=== PATIENT | female | born 1970 | race Caucasian/White ===

== ENCOUNTER 2019-05-27 15:38 | Emergency (ER) | payer BC ==
--- OUTSIDE RECORDS SUMMARY | 2019-05-27 16:10 | XMS REPORT | Continuity of Care Document ---
:1970 External Reference #:[id number] Author Name Khalida Wallace, FRANCOIS, RN, PIPELINE SUPERINTENDENT-BC (transmitted by agent of provider Chely Ramesh) Address [address] [facility], [address] [place] [address] Care Team Providers Name Role Phone Claudia Amezcua, DO - Family Care Team Information Professor Of Counseling [phone] Medicine Problems Description No Information Available Social History Type Date Description Comments Sex Unknown Tobacco Use Start: Unknown Never Smoked Cigarettes Smoking Status Reviewed: 05/10/19 Never Smoked Cigarettes ETOH Use Denies alcohol use Tobacco Use Start: Unknown Patient has never smoked Recreational Drug Use Denies Drug Use Exercise Type/Frequency Does not exercise Allergies, Adverse Reactions, Alerts Active Allergies Reaction Severity Comments Date Succinylcholine 04/14/2019 Inactive Allergies NKDA 03/29/2016 Medications Active Medications SIG Qnty Indications Ordering Provider Date Maxalt as needed for Unknown 10mg Tablets migraines Sertraline HCL Take 1 And 1/2 Unknown 50mg Tablets By Mouth Tablets One Time Daily Montelukast Sodium Take 1 Tablet By Unknown 10mg Mouth Every Day Tablets Diclofenac Sodium Take 1 Tablet By Unknown 50mg Mouth as Needed For Tablets DR Headache, May Repeat In 4 Hours. No More Than 2 Days Per Week, No More Than 15 Days Per Month. Topiramate Take 1 Tablet By Unknown 50mg Tablets Mouth Two Times Daily Omeprazole Take 1 Capsule By Unknown 20mg Mouth Every Day Capsules DR Migraine Pamela prn Unknown Migshield 1 qd Unknown CBD Oil cbd oil 1 or 2 Unknown drops topically daily for joint pain Immunizations Description No Information Available Vital Signs Date Vital Result Comment 05/10/2019 10:56am Height 67 inches 5'7" Weight 194.00 lb Heart Rate 76 /min BP Systolic 98 mmHg BP Diastolic 60 mmHg O2 % BldC Oximetry 98 % BMI (Body Mass Index) 30.4 kg/m2 04/14/2019 10:16am Height 67 inches 5'7" Weight 195.00 lb Heart Rate 72 /min BP Systolic Sitting 122 mmHg BP Diastolic Sitting 82 mmHg O2 % BldC Oximetry 96 % BMI (Body Mass Index) 30.5 kg/m2 Neck Circumference in inches 15.25 Results Description No Information Available Procedures Date Code Description Status 04/20/2019 50440 Sleep Study Unattended,HRT Rate,Oxygen Sat,Resp Completed Effort/Airflow Medical Devices Description No Information Available Encounters Type Date Location Provider Dx Diagnosis Office Visit 04/14/2019 [facility] Sleep Ana Rosa Vilchis MD R06.83 Snoring 10:30a [facility] R53.83 Other fatigue Office Visit 03/05/2019 10:00a [facility] Dermatology Kyle Conway L82.1 Other seborrheic MD keratosis D22.5 Melanocytic nevi of trunk Z80.8 Family history of malignant neoplasm of organs or systems Assessments Date Code Description Provider 05/10/2019 G47.33 Obstructive sleep apnea (adult) Khalida Wallace DNP, RN, PIPELINE SUPERINTENDENT-BC (pediatric) 05/10/2019 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 Khalida Wallace DNP, RN, PIPELINE SUPERINTENDENT- BC condition 05/10/2019 E66.9 Obesity, unspecified Khalida Wallace DNP, RN, PIPELINE SUPERINTENDENT-BC 05/10/2019 Z68.30 Body mass index (BMI) 30.0-30.9, Khalida Wallace DNP, RN , PIPELINE SUPERINTENDENT-BC adult 04/20/2019 G47.33 Obstructive sleep apnea (adult) Ana Rosa Vilchis MD (pediatric) 04/14/2019 R06.83 Snoring Ana Rosa Vilchis MD 04/14/2019 R53.83 Other fatigue Ana Rosa Vilchis MD 03/05/2019 L82.1 Other seborrheic keratosis Kyle Conway MD 03/05/2019 D22.5 Melanocytic nevi of trunk Kyle Conway MD 03/05/2019 Z80.8 Family history of malignant Kyle MD Man neoplasm of other organs or systems Plan of Treatment Future Appointment(s):07/02/2019 11:15 am - Khalida Wallace DNP, RN, PIPELINE SUPERINTENDENT-BC at [facility]05/10/2019 - Khalida Wallace DNP, RN, PIPELINE SUPERINTENDENT- BCG47.33 Obstructive sleep apnea (adult) (pediatric)Comments:Sleep Apnea - 04/20 HST AHI 6.2/hour, bret oxygen 74%, <89 3.8 minutes, wt 195# BMI 30.5Follow up:6 weeksRecommendations:Sleep apnea to start PAP at 5-12 cm Review of sleep study in detail. Review of risks of untreated sleep apnea including cardiovascular events: rhythm irregularities, heart attack, stroke; gastro esophageal reflux disease (GERD); diabetes; anxiety, depression; high blood pressure; accidents (machinery and automobile) Recommendation for PAP other treatment modalities NON-PAP including oral appliance/mandibular advancement device, positional strategies , and surgery discussed. Referral for PAP device to be sent to [facility] phone: [phone] Equipment appointment will take about 45 minutes, the DME provider will call you within 5 days to set you up for the device. If you do nothear from them call the Sleep Center. The mask will have a 30-day guarantee, if you have mask problems call the DME provider to have a fitting for a different mask. Need distilled water for humidifier CPAP mask and tubing Cleaning Wipe off mask daily (baby wipe-no scent, or warm water) Clean mask, tubing, filter, and water chamber weekly in mild no scent dish soap and water. Hang to dry. If you have problems with the air pressure call the sleep center and speak to a nurse. If you have any further questions, please call the [facility] Center at [phone]. If you have any sleepiness while driving you MUST avoid operating a vehicle or machinery.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 conditionRecommendations:Should improve with tgqnnbugzZ56.9 Obesity, unspecifiedReferral:Jo Ann Mcadams MD, Internal MedicineRecommendations: Due to problems losing weight despite healthy diet consult with [facility] formedically supervised weight lossZ68.30 Body mass index ( BMI) 30.0-30.9, adultRecommendations:see assessment #3 Functional Status Description No Information Available Mental Status Description No Information Available Referrals Refer to Reason for Referral Status Appt Date Jo Ann Mcadams MD Difficulty with weight loss despite healthy Sent eating Sleep apnea [address] [facility] [address] [place] [id number] [phone]
--- OUTSIDE RECORDS SUMMARY | 2019-05-27 16:10 | XMS REPORT | Continuity of Care Document ---
:1970 External Reference #:[id number] Author Name Ana Rosa Vilchis MD (transmitted by agent of provider Carlie Perez) Address [address], [address] [place] [address] Care Team Providers Name Role Phone Claudia Amezcua, DO - Family Care Team Information Property Manager [phone] Medicine Problems Description No Information Available Social History Type Date Description Comments Sex Unknown Tobacco Use Start: Unknown Never Smoked Cigarettes Smoking Status Reviewed: 04/14/19 Never Smoked Cigarettes ETOH Use Denies alcohol [...] Available Vital Signs Date Vital Result Comment 04/14/2019 10:16am Height 67 inches 5'7" Weight 195.00 lb Heart Rate 72 /min BP Systolic Sitting 122 mmHg BP Diastolic Sitting 82 mmHg O2 % BldC Oximetry 96 % BMI (Body Mass Index) 30.5 kg/m2 Neck Circumference in inches 15.25 03/31/2016 3:17pm Height 67 inches 5'7" Weight 192.00 lb Heart Rate 66 /min BP Systolic 110 mmHg BP Diastolic 78 mmHg Respiratory Rate 16 /min Body Temperature 97.3 F BMI (Body Mass Index) 30.1 kg/m2 Results Description No Information Available Procedures Description No Information Available Medical Devices Description No Information Available Encounters Type Date Location Provider Dx Diagnosis Office Visit 03/05/2019 [facility] Dermatology Kyle Conway MD L82.1 Other seborrheic 10:00a keratosis D22.5 Melanocytic nevi of trunk Z80.8 Family history of malignant neoplasm of organs or systems Assessments Date Code Description Provider 04/14/2019 R06.83 Snoring Ana oRsa Vilchis MD 04/14/2019 R53.83 Other fatigue Ana Rosa Vilchis MD 03/05/2019 L82.1 Other seborrheic keratosis Kyle Conway MD 03/05/2019 D22.5 Melanocytic nevi of trunk Kyle Conway MD 03/05/2019 Z80.8 Family history of malignant neoplasm of other Kyle Conway MD organs or systems Plan of Treatment 04/14/2019 - Ana Rosa Vilchis, MDR06.83 SnoringNew Orders:Home Sleep Testing, Ordered: 04/14/19Follow up:2 tzasqW92.83 Other fatigue Functional Status Description No Information Available Mental Status Description No Information Available Referrals Description No Information Available
--- OUTSIDE RECORDS SUMMARY | 2019-05-27 16:10 | XMS REPORT | Continuity of Care Document ---
:1970 External Reference #:[id number] Author Name Khalida Wallace, FRANCOIS, RN, CANDY SPREADER-BC (transmitted by agent of provider Chely Ramesh) Address [address] [facility], [address] [place] [address] Care Team Providers Name Role Phone Claudia Amezcua, DO - Family Care Team Information Terminal Gauger Supervisor Medicine Problems Description No Information Available Social [...] Available Procedures Date Code Description Status 04/20/2019 30330 Sleep Study Unattended,HRT Rate,Oxygen Sat,Resp Completed Effort/Airflow Medical Devices Description No Information Available Encounters Type Date Location Provider Dx Diagnosis Office Visit 04/14/2019 Pul[facility]ology And Sleep Ana Rosa Vilchis MD R06.83 Snoring 10:30a [facility] R53.83 Other fatigue Office Visit 03/05/2019 10:00a [facility] Dermatology Kyle Conway L82.1 Other seborrheic MD keratosis D22.5 Melanocytic nevi of trunk Z80.8 Family history of malignant neoplasm of organs or systems Assessments Date Code Description Provider 05/10/2019 G47.33 Obstructive sleep apnea (adult) Khalida Wallace DNP, RN, CANDY SPREADER-BC (pediatric) 05/10/2019 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 Khalida Wallace DNP, RN, CANDY SPREADER- BC condition 05/10/2019 E66.9 Obesity, unspecified Khalida Wallace DNP, RN, CANDY SPREADER-BC 05/10/2019 Z68.30 Body mass index (BMI) 30.0-30.9, Khalida Wallace DNP, RN , CANDY SPREADER-BC adult 04/20/2019 G47.33 Obstructive sleep apnea (adult) [...] 11:15 am - Khalida Wallace DNP, RN, CANDY SPREADER-BC at [facility]05/10/2019 - Khalida Wallace DNP, RN, CANDY SPREADER- BCG47.33 Obstructive sleep apnea (adult) (pediatric)Comments:Sleep Apnea [...] for PAP device to be sent to [email or web address] phone: [phone] Equipment appointment will take about 45 minutes, [...] please call the Sleep Disorder Center at [phone]. If you have any sleepiness while driving you MUST avoid operating a vehicle or machinery.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 conditionRecommendations:Should improve with haezbaaurH86.9 Obesity, unspecifiedReferral:Jo Ann Mcadams MD, Internal MedicineRecommendations: Due to problems losing weight despite healthy diet consult with [facility] formedically supervised weight lossZ68.30 Body mass index ( BMI) 30.0-30.9, adultRecommendations:see assessment #3 Functional Status Description No Information Available Mental Status Description No Information Available Referrals Refer to Reason for Referral Status Appt Date Jo Ann Mcadams MD Difficulty with weight loss despite healthy Created eating Sleep apnea [address] [facility] [address] [place] [id number] [phone]
[2019-05-27 16:36] VITALS: BP 148/87
--- NOTE | 2019-05-27 16:52 | UC ---
[facility] HPI - HPI Summary HPI Summary: 1 WEEK OF WORSENING LEFT UPPER DENTAL PAIN. FEELS IT IS SWOLLEN. NO DRAINAGE. NO FEVER. DOES HAVE A CAP ON THE TOOTH IN QUESTION. IS ALSO COMPLAINING OF A MILD COUGH FOR THE PAST FEW DAYS. STATES THE HUMIDIFIER ON HER CPAP MACHINE IS BROKEN AND WONDERS IF THE DRY AIR IS IRRITATING HER LUNGS. - History of Current Complaint Chief Complaint: UCGeneralIllness Stated Complaint: COUGH FEVER DENTAL PAIN Time Seen by Provider: 05/27/19 16:24 Hx Obtained From: Patient Hx Last Menstrual Period: last week Onset/Duration: Gradual Onset, Lasting Days, Still Present Severity: Moderate Pain Intensity: 5 Pain Scale Used: 0-10 Numeric Aggravating Factor(s): Heat, Cold, Chewing Alleviating Factor(s): Nothing Related History: Previous Dental Care on Same Tooth - Allergies/Home Medications Allergies/Adverse Reactions: Allergies Allergy/AdvReac Type Severity Reaction Status Date / Time succinylcholine Allergy See Comment Verified 05/27/19 16:25 ANESTHSIA MED Allergy PT HAS A Uncoded 08/10/16 13:[address] HARRIS EXPLAINING Home Medications: Home Medications Diclofenac Sodium EC TAB* [Voltaren EC TAB*] 25 mg PO TID PRN 05/27/19 [History Confirmed 05/27/19] Omeprazole 40 mg PO DAILY 05/27/19 [History Confirmed 05/27/19] Rizatriptan Benzoate [[facility] Pediatric Physician] 10 mg .ROUTE 05/27/19 [History] Sertraline* [Zoloft*] 75 mg PO BEDTIME 05/27/19 [History Confirmed 05/27/19] Topiramate TAB(*) [Topamax 100 mg tab] 100 mg PO BEDTIME 05/27/19 [History Confirmed 05/27/19] PMH/Surg Hx/FS Hx/Imm Hx Respiratory History: Asthma GI/ History: Gastroesophageal Reflux Neurological History: Migraine - Surgical History Surgical History: Yes Surgery Procedure, Year, and Place: polyp removal in ovary. APPENDECTOMY -2015 - Family History Known Family History: Positive: Non-Contributory - Social History Alcohol Use: None Substance Use Type: None Smoking Status (MU): Never Smoked Tobacco - Immunization History Most Recent Influenza Vaccination: Never had Most Recent Tetanus Shot: 2013 Most Recent Pneumonia Vaccination: Never had Review of Systems All Other Systems Reviewed And Are Negative: Yes Constitutional: Positive: Negative ENT: Positive: Dental Pain Respiratory: Positive: Cough Cardiovascular: Positive: Negative Gastrointestinal: Positive: Negative Physical Exam Triage Information Reviewed: Yes Appearance: Well-Appearing, No Pain Distress, Well-Nourished Vital Signs: Initial Vital Signs Temp 98.3 F 05/27/19 16:34 Pulse 81 05/27/19 16:34 Resp 18 05/27/19 16:34 BP 148/87 05/27/19 16:34 Pulse Ox 99 05/27/19 16:34 Vital Signs Reviewed: Yes Eyes: Positive: Conjunctiva Clear ENT: Positive: Hearing grossly normal, Pharynx normal, TMs normal Dental: Positive: Percussion Tenderness @ - #13. Negative: Cervical Lymphadenopathy Neck: Positive: Supple, Nontender, No Lymphadenopathy Respiratory Exam: Normal Cardiovascular Exam: Normal Abdomen Description: Positive: Soft Musculoskeletal: Positive: No Edema Neurological: Positive: Alert Psychological: Positive: Age Appropriate Behavior Skin: Negative: Rashes Dental Complaint Course/Dx - Course Course Of Treatment: PATIENT WITH PAIN TO LEFT UPPER SECOND PREMOLAR. THIS TOOTH HAS BEEN CAPPED FOR MANY YEARS. WILL COVER FOR INFECTION WITH ANTIBIOTICS. ANTISEPTIC MOUTH RINSE. ANTI-INFLAMMATORIES NEEDED FOR PAIN. ADVISED PATIENT TO CALL HER DENTIST FIRST THING IN THE MORNING FOR AN APPOINTMENT. LUNGS CLEAR ON EXAM. OXYGEN SATURATION NORMAL. POSSIBLE EARLY VIRAL URI VERSUS AIRWAY IRRITATION FROM DRY AIR FROM CPAP. NO ACUTE INTERVENTION INDICATED. PT WILL USE HER INHALERS PRESCRIBED. PATIENT WILL BE TAKING HER MACHINE INTO THE MEDICAL SUPPLY DEPOT [facility]. - Differential Dx/Diagnosis Provider Diagnosis: Pain, dental Discharge ED - Sign-Out/Discharge Documenting (check all that apply): Patient Departure All imaging exams completed and their final reports reviewed: No Studies - Discharge Plan Condition: Stable Disposition: HOME Prescriptions: Amoxicillin/Clavulanate TAB* [Augmentin TAB 875*] 875 mg PO BID #20 tab Chlorhexidine MW 0.12% 473ML* [Peridex Mouth Wash 0.12%*] 15 ml SWISH SPIT BID # 1 bottle Naproxen [Naproxen 500 mg tab] 500 mg PO BID PRN #30 tablet PRN Reason: Pain Patient Education Materials: Toothache (ED) Referrals: Claudia Amezcua DO [Primary Care Provider] - If Needed Additional Instructions: TAKE THE ANTIBIOTICS FOR THE FULL COURSE. RINSE YOUR MOUTH WITH WATER AFTER EATING OR DRINKING ANYTHING. ANTISEPTIC MOUTH RINSE TWICE DAILY. TAKE NAPROXEN NEEDED FOR PAIN. FOLLOW-UP WITH A DENTIST TALI. - Billing Disposition and Condition Condition: STABLE Disposition: Home
== END 2019-05-27 17:05 | disposition home or self-care (01) ==
LOC: UCEAST 15:38
DX: K08.89 Other specified disorders of teeth and supporting structures (principal); J45.909 Unspecified asthma, uncomplicated; K21.9 Gastro-esophageal reflux disease without esophagitis; G43.909 Migraine, unspecified, not intractable, without status migrainosus; R05 Cough; Z79.899 Other long term (current) drug therapy; Z88.4 Allergy status to anesthetic agent; Z88.8 Allergy status to other drugs, medicaments and biological substances
CPT/HCPCS: 99212; G0463

== ENCOUNTER 2020-05-26 16:56 | Observation (INO) ==
[2020-05-26] MEDS ORDERED: NS 0.9% 1000 ml BAG 1,000 ML IV ONE (20:36)
[2020-05-26 20:58] LABS: ABS Basophils 0.1 10^3/ul (0-0.2); ABS Eosinophils 0.1 10^3/ul (0-0.6); ABS Lymphocytes 2.6 10^3/ul (1.0-4.8); ABS Monocytes 0.8 10^3/ul (0-0.8); ABS Neutrophils 7.6 10^3/ul (1.5-7.7); Eosinophil % 1.1 %; Hematocrit 40 % (35-47); Hemoglobin 13.2 g/dL (12.0-16.0); Lymphocyte % 23.2 %; Mean Corpuscular HGB Conc 33 g/dL (31-36); Mean Corpuscular Hemoglobin 28 pg (27-31); Mean Corpuscular Volume 84 fL (80-97); Mean Platelet Volume 7.2 fL (7.4-10.4); Platelet Count 259 10^3/uL (150-450); Red Blood Count 4.79 10^6 /uL (3.70-4.87); Red Cell Distribution Width 14 % (10-15); White Blood Count 11.2 10^3/uL (3.5-10.8)
[2020-05-26 21:00] LABS: Urine Appearance Cloudy; Urine Bilirubin Negative (Negative); Urine Blood Negative (Negative); Urine Color Yellow; Urine Glucose Negative (Negative); Urine Ketones Negative (Negative); Urine Nitrite Negative (Negative); Urine Protein Negative (Negative); Urine Specific Gravity 1.009 (1.010-1.030); Urine Urobilinogen Negative (Negative)
[2020-05-26 21:06] LABS: INR 1.03 (0.82-1.09)
[2020-05-26 21:17] LABS: ALT 11 U/L (7-52); AST 11 U/L (13-39); Albumin 3.9 g/dL (3.2-5.2); Albumin/Globulin Ratio 1.4 (1-3); Alkaline Phosphatase 49 U/L (34-104); Anion Gap 6 mmol/L (2-11); BUN/Creatinine Ratio 15.2 (8-20); Blood Urea Nitrogen 15 mg/dL (6-24); CO2 Carbon Dioxide 25 mmol/L (22-32); Calcium 9.1 mg/dL (8.6-10.3); Chloride 107 mmol/L (101-111); EGFR African American 72.1 (>60); EGFR Non-African American 59.6 (>60); Globulin 2.7 g/dL (2-4); Glucose 94 mg/dL (70-100); Potassium 4.6 mmol/L (3.5-5.0); Sodium 138 mmol/L (135-145); Total Protein 6.6 g/dL (6.4-8.9)
[2020-05-26 21:23] LABS: HCG Pregnancy < 0.60 mIU/mL
[2020-05-26] MEDS ORDERED: Iodixanol (CONTRAST) 320 MG/ML 100 ML SDV IV ONE (21:29)
[2020-05-26 21:38] LABS: TSH Ultra Thyroid Stim Horm 2.93 mcIU/mL (0.34-5.60)
[2020-05-27] MEDS ORDERED: Ondansetron 4 mg VIAL 2 MG/ML 2 ml VIAL IV PRN (01:00)
[2020-05-27] MEDS ORDERED: Albuterol HFA INHALER 8 gm MDI INH PRN (02:14)
[2020-05-27] MEDS: Enoxaparin 40 MG/0.4 ML SYR SUBCUT SCH (05:53)
[2020-05-27] MEDS: Nystatin TOP POWDER 15 GM BTL TOPICAL SCH ×2 (08:03→20:51)
[2020-05-27] MEDS: DIGESTIVE ENZYMES PO SCH (08:04)
[2020-05-27 10:49] LABS: C Reactive Protein 3.18 mg/L (<8.01)
[2020-05-27 11:11] LABS: Vitamin B12 > 1450 pg/mL (180-914)
[2020-05-27 12:18] LABS: Rheumatoid Factor < 10 IU/mL (<15)
[2020-05-27 12:59] LABS: Urine Benzodiazepine Screen None Detected (None Detect); Urine Buprenorphine Screen None Detected (None Detect); Urine Cannabinoids Screen None Detected (None Detect); Urine Fentanyl Screen None Detected (None Detect); Urine Hydrocodone Screen None Detected (None Detect); Urine Opiates Screen None Detected (None Detect)
[2020-05-27] MEDS: Senna TAB 8.6 mg TAB PO SCH (20:50)
[2020-05-27] MEDS: Polyethylene Glycol 3350 17 GM PACKET PO SCH (20:51)
[2020-05-28 04:25] LABS: ABS Basophils 0.1 10^3/ul (0-0.2); ABS Eosinophils 0.1 10^3/ul (0-0.6); ABS Lymphocytes 2.7 10^3/ul (1.0-4.8); ABS Monocytes 0.8 10^3/ul (0-0.8); ABS Neutrophils 5.4 10^3/ul (1.5-7.7); Eosinophil % 1.3 %; Hematocrit 36 % (35-47); Hemoglobin 11.9 g/dL (12.0-16.0); Lymphocyte % 30.1 %; Mean Corpuscular HGB Conc 33 g/dL (31-36); Mean Corpuscular Hemoglobin 28 pg (27-31); Mean Corpuscular Volume 83 fL (80-97); Mean Platelet Volume 7.1 fL (7.4-10.4); Platelet Count 220 10^3/uL (150-450); Red Blood Count 4.32 10^6 /uL (3.70-4.87); Red Cell Distribution Width 14 % (10-15); White Blood Count 9.1 10^3/uL (3.5-10.8)
[2020-05-28 04:40] LABS: BUN/Creatinine Ratio 18.4 (8-20); Calcium 8.6 mg/dL (8.6-10.3); EGFR African American 83.7 (>60); EGFR Non-African American 69.2 (>60); Potassium 3.6 mmol/L (3.5-5.0)
[2020-05-28 04:46] LABS: Testosterone 32.39 ng/dL (8-60)
[2020-05-28] MEDS: Enoxaparin 40 MG/0.4 ML SYR SUBCUT SCH (05:04)
[2020-05-28] MEDS: DIGESTIVE ENZYMES PO SCH (07:02)
[2020-05-28] MEDS: Senna TAB 8.6 mg TAB PO SCH (07:02)
[2020-05-28] MEDS: Polyethylene Glycol 3350 17 GM PACKET PO SCH (07:02)
[2020-05-28] MEDS: Nystatin TOP POWDER 15 GM BTL TOPICAL SCH (07:02)
[2020-05-28 11:40] VITALS: BP 111/67
[2020-05-28 20:52] LABS: Anaplasma phagocytophilum Negative (Negative); B. miyamotoi PCR, B Negative (Negative); Babesia divergens/MO-1 Negative (Negative); Babesia ducani Negative (Negative); Ehrlichia chaffeensis Negative (Negative); Ehrlichia ewingii/canis Negative (Negative); Ehrlichia muris eauclairensis Negative (Negative)
== END 2020-05-28 16:25 | disposition home or self-care (01) ==
LOC: ED 16:56 → MEDTELE 16:56
PROVIDERS: ADMIT Internal Medicine; ATTEND Internal Medicine